=== PATIENT | female | born 1960 | race Caucasian/White ===

== ENCOUNTER 2022-10-05 13:29 | Outpatient (CLI) | payer SELFPAY ==
--- NOTE | 2022-10-05 13:45 | ECG_ITS ---
Measurements Intervals [place] Rate: 58 P: 44 NV: 193 QRS: -25 QRSD: 107 T: 92 QT: 375 QTc: 370 Interpretive Statements SINUS BRADYCARDIA LEFT AXIS DEVIATION [QRS AXIS < -20] NONSPECIFIC ST AND T-WAVE ABNORMALITY ABNORMAL ECG NO PREVIOUS ECG AVAILABLE FOR COMPARISON Electronically Signed On 10-06-2022 14:29:14 COUNTERPERSON by Ashwin Gonzales M.D.
== END 2022-10-05 13:30 | disposition home or self-care (01) ==
PROVIDERS: PCP Surgery Plastic and Reconstructive Surgery; Visit Provider Surgery Plastic and Reconstructive Surgery
DX: I10 Essential (primary) hypertension (principal); Z01.818 Encounter for other preprocedural examination; R94.31 Abnormal electrocardiogram [ECG] [EKG]
CPT/HCPCS: 93005

== ENCOUNTER 2022-10-17 01:50 | Day surgery (SDC) | payer OTHER, SELFPAY ==
[2022-10-04 13:58] VITALS: BMI 25.1
--- NOTE | 2022-10-04 14:06 | PC.NURSE ---
Report to the Outpatient Waiting Room, entrance under the green pavilion located off [facility], at time 06:00AM on date 10-17-22. Planned Procedure Time: 07:30AM. Time changes happen often and if your time is changed the preop area will call you the afternoon before. - You and your visitor will be asked to self-screen and do not enter if you have any COVID symptoms. - Only one visitor is requested with a max of two and NO children visitors are allowed at this time. - The patient visitor may be requested to leave or wait in car when not with patient due to distancing restrictions. - A mask is optional within the hospital at this time. Patients may have clear liquids (water, carbonated beverages, clear teas, apple juice) until 3 hours prior to surgery (4:30AM) with a maximum of 20 ounces. - No food from midnight until time of surgery Take the following medications with a SIP of water the morning of surgery: BUSPIRONE, LORAZEPAM PRN, CONTACT OFFICE IN REGARDS TO NAPROXEN DO NOT STOP ANY OF YOUR OTHER PRESCRIPTION MEDICATIONS PRIOR TO SURGERY ?EXCEPT THE FOLLOWING Medications to discontinue per physician VITAMINS/SUPPLEMENTS Date to take last dose 10-13-22 Please no make-up, nail [place], hairspray, perfume, deodorant, or body powder the day of surgery. No jewelry (including any body piercings) or valuables the day of surgery, leave them at home. Please take a shower or bath the night before, or the morning of, surgery with an antibacterial soap. Wear comfortable, loose fitting clothing. - Jewelry must be removed prior to entering the operating room. Rings and piercings that are not removed may be cut off. - The hospital will not accept responsibility for valuables. - Please leave all valuables, including medications, at home the day of surgery. If you are going home after surgery, a licensed scoop driver must drive you home. - NO public transportation without another adult if you receive anesthesia. - We recommend that an adult stay with you for 24 hours following discharge. - We also recommend that you do not drive, make important decision, drink alcoholic beverages, or take any drugs that were not prescribed by your health care provider for at least 24 hours after your discharge time. Follow any additional instructions given to you from your surgeon. If you or anyone in your household have experienced Covid symptoms in the past week, please notify your surgeon or the nurse liaison at the phone number below for possible testing. Telephone instructions given to PATIENT and asked if any additional questions and then verbalized understanding. Patient advised to call surgeon office or pre surgery nurse liaison [phone] if any additional questions.
[2022-10-17] VITALS (11 sets, daily range): BP systolic 131–166; BP diastolic 67–84; PULSE 59–96; RESP 12–20; TEMP 36.1–36.8; O2SAT 96–100; BMI 26.6
[2022-10-17] MEDS: LACTATED RINGERS 1,000 ML 30 ML IV CONT ×2 (06:40→09:45)
--- NOTE | 2022-10-17 06:48 | WPDHPUPDATE1 ---
History and Physical Update Update Date/Time: 10/17/22 06:48 History and Physical has been reviewed, including an updated exam of the patient. There are NO changes in the patient's condition. Risks, benefits, and alternatives have been discussed and questions answered. Patient agrees to proceed with procedure.
--- NOTE | 2022-10-17 07:03 | P.OP_ITS ---
Procedure Note - Detailed Date of Procedure 10/17/22 Pre-op Diagnosis bilateral breast implant rupture Post-op Diagnosis Same Procedure Performed Bilateral implant exchange Surgeon Nas Moore MD Anesthesia General Findings Previous Implants Bilateral breast implant silicone rupture (patient reports silicone / saline shell) Bilateral [place] 270cc No evidence of extracapsular silicone New Implants Bilateral saline 350cc filled to 370cc Right REF 68LP-350 SN [id number] Left REF 68LP-350 SN [id number] Description of Procedure She is here for the above procedure. Preoperatively risks, benefits, alternatives were discussed in extensive detail. Want her to be very realistic about risks involved as well as expectations. 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 Made sure answered everyone of her questions to her satisfaction again today. She voiced a clear understanding. Consent was obtained. She was taken to the operating room placed supine on the operating room table. Anesthesia provided by anesthesiology. She was prepped and draped in the standard sterile fashion. Tegaderm nipple vernon placed. Surgical time-out was. 1% lidocaine and 0.25% Marcaine with epinephrine was used to provide a field block. Fifteen blade used to excise along previous scar. Dissection was continued down to the capsules identified it is an elevated above the capsule and a total capsulectomy was performed. At this point the implant and the capsule were removed. Capsule sent to pathology. I copiously irrigated with 3 L of saline solution on TUR tubing. Verified strict hemostasis. On the back table we soaked the saline implant in betadine solution. It was prepared by removing all air and introduced into the pocket. This was filled using a fill kit to the volumes described above. I closed with 2-0 PDS followed by 3-0 Stratafix in running subcuticular 4-0 Monocryl and tissue glue. Dressings and a surgical bra were placed. She tolerated the procedure well. Estimated Blood Loss 30 Drains No Packing No Pathology Yes (bilateral breast capsules) Complications None Condition Stable Disposition PACU
--- NOTE | 2022-10-17 07:07 | WPDANESEPPF ---
Anes - Initial Pre Proc Eval Procedure: Operation Date: 10/17/22 07:30 Proposed Procedures p Bilateral Breast Implant Exchange with Capsulectomy - Nas Moore MD Date/Time: 10/17/22 07:07 Surgeon: Nas Moore MD Pre Op Diagnosis: bilateral breast implant rupture Patient Data Age: 62 Gender: F Height: 1.73 m Weight: 79.4 kg Allergies Allergy/AdvReac Type Severity Reaction Status Date / Time lisinopril Allergy Intermediate Swelling Verified 10/17/22 06:19 hydrocodone [From Vicodin] AdvReac Intermediate Muscle Verified 10/17/22 06:19 Spasms Home Medications Medication Instructions Recorded Confirmed Type amlodipine 5 mg tablet 5 mg PO DAILY 10/04/22 10/04/22 History buspirone 10 mg tablet 10 mg PO BID 10/04/22 10/04/22 History cholecalciferol (vitamin D3) 50 75 mcg PO DAILY 10/04/22 10/04/22 History mcg (2,000 unit) tablet (Vitamin D3) cyanocobalamin (vitamin B-12) 500 500 mcg intranasal WEEKLY 10/04/22 10/04/22 History mcg/spray nasal spray (Nascobal) linaclotide 72 mcg capsule 290 mcg PO DAILY 10/04/22 10/04/22 History (Linzess) lorazepam 0.5 mg tablet 0.5 mg PO DAILY PRN Anxiety 10/04/22 10/04/22 History multivit with minerals-iron 18 1 tablet PO DAILY 10/04/22 10/04/22 History mg-folic ac 400 mcg-vit K 25 mcg tablet (Adults Multivitamin) naproxen 250 mg tablet 500 mg PO BID 10/04/22 10/04/22 History potassium chloride 8 mEq 10 meq PO DAILY 10/04/22 10/04/22 History capsule,extended release triamterene 75 1 tablet PO DAILY 10/04/22 10/04/22 History mg-hydrochlorothiazide 50 mg tablet Patient hx anesthesia problems: none Family hx anesthesia problems: none Results Review: All pre-operative results and documents have been reviewed as part of the pre-operative evaluation. [facility] Past Medical History Medical History (Updated 10/17/22 @ 07:07 by Justin Stockton MD) Anxiety HTN (hypertension) Surgical History Surgical History (Updated 10/17/22 @ 07:08 by Justin Stockton MD) H/O breast augmentation S/P gastric sleeve procedure Social History Social History Smoking status: Never smoker Second hand tobacco smoke exposure: Yes (PARENT, EX ) Alcohol intake: never Substance use: never Substance use type: does not use Living arrangements: with family Spiritual care concerns: No Anes - Eval Final PreProcedure Day of Procedure 10/17/22 07:07 Patient weight: overweight Heart: regular rate and rhythm Lungs: clear to auscultation Airway: Mallampati scale class II Neurological: alert and oriented Last oral intake: >/= 8 hours ASA classification: II Emergent: no Anesthetic plan: proceed Anesthesia type and monitoring: general LMA and standard monitoring Results Review: All pre-operative results and documents have been reviewed as part of the pre-operative evaluation. Informed Consent: The patient's anesthetic plan and its attendant risks and benefits were discussed with the patient/family/POA. Questions were solicited and answers provided to the satisfaction of the patient/family/POA.
[2022-10-17] MEDS: ceFAZolin 2 GM/D5W 50 ML 2 GM/50 ML BAG IVPB (07:21)
[2022-10-17] MEDS: BUPivacaine HCL 0.25% PF 30 ML VIAL INFILTRATE (07:29)
[2022-10-17] MEDS: LIDO 1%/EPINEPHRINE 1:100,000 20 ML VIAL 30 ML INFILTRATE (07:29)
[2022-10-17] MEDS: NACL 0.9% IRRIG POUR BOTTLE 900 ML, GENTAMICIN SULFATE INJ 160 MG, ceFAZolin 2 GM, POVI... IRRIGATION (07:50)
[2022-10-17] MEDS: fentaNYL CITRATE INJ (*CRX) 100 MCG/2 ML VIAL 25 MCG IV PUSH ×8 (09:13→09:52)
[2022-10-17] MEDS: KETOROLAC 15 MG/ML VIAL (*BKC) IV PUSH (10:59)
== END 2022-10-17 11:34 | disposition home or self-care (01) ==
PROVIDERS: PCP Internal Medicine; Visit Provider Surgery Plastic and Reconstructive Surgery
PROC: (CPT 19342; principal; 2022-10-17 07:30)
DX: T85.41XA Breakdown (mechanical) of breast prosthesis and implant, initial encounter (principal); Y83.8 Other surgical procedures as the cause of abnormal reaction of the patient, or of later complication, without mention of misadventure at the time of the procedure; I10 Essential (primary) hypertension; F41.9 Anxiety disorder, unspecified; Z98.84 Bariatric surgery status
CPT/HCPCS: 19371; 19325; 88304; J0131; J0690; J1580; J1885; J2250; J2405; J2704; J3010; J7120